=== PATIENT | female | born 1970 | race Caucasian/White ===

== ENCOUNTER 2021-08-02 13:29 | Inpatient (IN) | payer SELFPAY ==
[2021-08-02 14:51] LABS: Actual Bicarbonate (HCO3v) 24 mEq/L (22-28); Analyzer IN Cardio ER; Base Excess -1.3 mEq/L (-2.0 to +3.0); Calcium, Ionized (venous) 1.13 mmol/L (1.16-1.32); Chloride (VBG) 99 mmol/L (98-106); Hemoglobin (Hb) 13.4 g/dL (11.7-16.0); Potassium (VBG) 3.67 mmol/L (3.70-5.30); pH (venous) 7.36 (7.32-7.43)
[2021-08-02 14:53] LABS: #Eosinphils 0.1 thou/uL (0.0-0.7); #Lymphocytes 2.5 thou/uL (1.20-3.40); #Neutrophils 8.3 thou/uL (1.40-6.50); %Basophils 0.1 % (0.0-1.0); %Eosinophils 0.7 % (0.0-10.0); %Lymphocytes 21.2 % (21.0-51.0); %Monocytes 8.2 % (0.0-10.0); %Neutrophils 69.8 % (42.0-75.0); Hemoglobin 12.7 g/dL (12.0-16.0); Mean Corpuscular HGB CONC 32.8 g/dL (32.0-36.0); Mean Corpuscular Hemoglobin 29.7 pg (27.0-31.0); Mean Corpuscular Volume 90.6 fL (78.0-98.0); Mean Platelet Volume 6.1 fL (7.4-10.4); Platelet Count 473 thou/uL (130-400); RBC Distribution Width 14.7 % (11.5-14.5); Red Blood Cell (RBC) Count 4.27 mill/uL (4.20-5.40); White Blood Cell (WBC) Count 11.9 thou/uL (4.8-10.8)
[2021-08-02 15:04] LABS: INR-International Normal Ratio 1.1; PTT 33.4 sec (22.9-36.1); Prothrombin Time 14.5 sec (12.0-14.7)
[2021-08-02 15:26] LABS: ALT (SGPT) 41 U/L (8-55); AST (SGOT) 22 U/L (5-34); Albumin 3.8 g/dL (3.5-5.0); Alkaline Phosphatase 114 U/L (40-110); Anion Gap 13 mmol/L (10-20); BUN (Urea Nitrogen) 11 mg/dL (9.8-20.1); Bilirubin, Total 0.2 mg/dL (0.2-1.2); Calc. Creatinine Clearance 0 mL/min (70-130); Calcium 9.5 mg/dL (7.8-10.44); Carbon Dioxide 28 mmol/L (22-29); Chloride 97 mmol/L (98-107); Globulin 3.5 g/dL (2.4-3.5); Glucose 90 mg/dL (70-105); Potassium 3.6 mmol/L (3.5-5.1); Protein, Total 7.3 g/dL (6.0-8.3); Sodium 133 mmol/L (136-145)
[2021-08-02] MEDS ORDERED: Morphine 4 MG/ML VIAL ONE (15:37)
[2021-08-02] MEDS ORDERED: cefTRIAXone\\ROCEPHIN 2 GM in Sodium Chloride 0.9% 100 ML IVPB SCH (15:45)
[2021-08-02] MEDS ORDERED: Acetaminophen 325 MG TAB PO PRN (15:50)
[2021-08-02] MEDS ORDERED: Guaifenesin DM 100-10/5 ML UDCUP PO PRN (17:52)
[2021-08-02] MEDS ORDERED: Bisacodyl 5 MG TAB PO PRN (17:52)
[2021-08-02] MEDS ORDERED: Ondansetron PF 4 MG/2 ML Vial IVP PRN (17:52)
[2021-08-02] MEDS ORDERED: Senokot S 8.6-50 MG TAB PO PRN (17:52)
[2021-08-02] MEDS ORDERED: Melatonin 3 MG TAB PO PRN (18:01)
[2021-08-02] MEDS ORDERED: Morphine 4 MG/ML VIAL SLOW IVP PRN (18:39)
[2021-08-02 20:52] VITALS: BMI 36.6
[2021-08-02] MEDS ORDERED: Enoxaparin Sodium 40 MG/0.4 ML SYRINGE SC SCH (21:00)
[2021-08-02] MEDS: Famotidine/PF 20 mg/2ml Vial SLOW IVP SCH (21:20)
[2021-08-02] MEDS: Morphine 4 MG/ML VIAL SLOW IVP PRN (21:21)
[2021-08-02] MEDS: Nicotine 21 MG PATCH TD SCH (22:13)
[2021-08-02] MEDS: Cefepime 2 GM in Sodium Chloride 0.9% 100 ML IVPB SCH (22:37)
[2021-08-02] MEDS: Vancomycin HCl 1.5 GM in Sodium Chloride 0.9% 250 ML 300 ML IVPB SCH (23:24)
[2021-08-03] MEDS: metroNIDAZOLE 500 MG in Premix Bag 1 BAG IVPB SCH ×4 (03:00→22:31)
[2021-08-03] MEDS: Morphine 4 MG/ML VIAL SLOW IVP PRN ×5 (03:00→21:36)
[2021-08-03 03:32] LABS: SARS-CoV-2 NAA Rapid Test Not Detected (NotDetected)
[2021-08-03 07:36] LABS: ALT (SGPT) 28 U/L (8-55); AST (SGOT) 13 U/L (5-34); Alkaline Phosphatase 93 U/L (40-110); Anion Gap 10 mmol/L (10-20); BUN (Urea Nitrogen) 8 mg/dL (9.8-20.1); Bilirubin, Total 0.4 mg/dL (0.2-1.2); Calc. Creatinine Clearance 188 mL/min (70-130); Calcium 8.5 mg/dL (7.8-10.44); Carbon Dioxide 27 mmol/L (22-29); Chloride 102 mmol/L (98-107); Globulin 2.4 g/dL (2.4-3.5); Glucose 83 mg/dL (70-105); Protein, Total 5.4 g/dL (6.0-8.3); Sodium 135 mmol/L (136-145)
[2021-08-03] MEDS: Famotidine/PF 20 mg/2ml Vial SLOW IVP SCH ×2 (08:48→21:35)
[2021-08-03] MEDS: Atorvastatin Calcium 40 MG TAB PO SCH (08:51)
[2021-08-03] MEDS: Gabapentin 300 MG CAP PO SCH ×3 (08:51→21:40)
[2021-08-03] MEDS: Cyclobenzaprine 10 MG TAB PO SCH ×3 (08:51→21:35)
[2021-08-03 09:20] LABS: #Eosinphils 0.2 thou/uL (0.0-0.7); #Lymphocytes 1.7 thou/uL (1.20-3.40); #Monocytes 0.9 thou/uL (0.11-0.59); #Neutrophils 4.3 thou/uL (1.40-6.50); %Basophils 0.3 % (0.0-1.0); %Eosinophils 3.2 % (0.0-10.0); %Lymphocytes 23.4 % (21.0-51.0); %Monocytes 12.7 % (0.0-10.0); %Neutrophils 60.4 % (42.0-75.0); Hemoglobin 10.6 g/dL (12.0-16.0); Mean Corpuscular Hemoglobin 28.3 pg (27.0-31.0); Mean Corpuscular Volume 91.4 fL (78.0-98.0); Mean Platelet Volume 6.2 fL (7.4-10.4); Platelet Count 327 thou/uL (130-400); RBC Distribution Width 14.5 % (11.5-14.5); Red Blood Cell (RBC) Count 3.73 mill/uL (4.20-5.40); White Blood Cell (WBC) Count 7.2 thou/uL (4.8-10.8)
[2021-08-03 09:35] LABS: Anion Gap 10 mmol/L (10-20); BUN (Urea Nitrogen) 7 mg/dL (9.8-20.1); Calc. Creatinine Clearance 178 mL/min (70-130); Calcium 8.7 mg/dL (7.8-10.44); Carbon Dioxide 29 mmol/L (22-29); Chloride 100 mmol/L (98-107); Glucose 80 mg/dL (70-105); Potassium 3.9 mmol/L (3.5-5.1); Sodium 135 mmol/L (136-145)
[2021-08-03] MEDS ORDERED: Iopamidol 370 76% 50 ML VIAL FS ONE (09:50)
[2021-08-03] MEDS: Vancomycin HCl 1.5 GM in Sodium Chloride 0.9% 250 ML 300 ML IVPB SCH ×2 (10:23→21:46)
[2021-08-03] MEDS ORDERED: Bacitracin Zinc Ointment 30 gm TUBE ONE (13:31)
[2021-08-03] MEDS ORDERED: Neomycin-Polymyxin 1 ML AMP ONE (13:31)
[2021-08-03] MEDS ORDERED: HYDROmorphone 2 MG/ML VIAL ONE (13:33)
[2021-08-03] MEDS ORDERED: Fentanyl 100 MCG/2 ML VIAL ONE ×4 (13:33→16:31)
[2021-08-03] MEDS ORDERED: Sodium Chloride 0.9% 10 ML ONE (13:56)
[2021-08-03] MEDS ORDERED: PROPOFOL 200 MG/20 ML VIAL ONE (14:03)
[2021-08-03] MEDS ORDERED: Dexamethasone 20 MG/5 ML VIAL ONE (14:03)
[2021-08-03] MEDS ORDERED: Succinylcholine 200 MG/10 ml SYRINGE FS ONE (14:03)
[2021-08-03] MEDS ORDERED: Rocuronium Bromide 10 MG/ML (10ML VIAL) ONE (14:03)
[2021-08-03] MEDS ORDERED: Ketorolac Tromethamine 30 MG/ML VIAL ONE (14:03)
[2021-08-03] MEDS ORDERED: Glycopyrrolate 0.2 MG/ML 5 ML SYRINGE ONE (14:03)
[2021-08-03] MEDS ORDERED: ePHEDrine 50 MG/ML VIAL ONE (14:03)
[2021-08-03] MEDS ORDERED: Phenylephrine 10 MG/ML VIAL ONE (14:03)
[2021-08-03] MEDS ORDERED: Lidocaine 1% PF 5 ML VIAL ONE (14:03)
[2021-08-03] MEDS ORDERED: Ondansetron PF 4 MG/2 ML Vial ONE (14:03)
[2021-08-03] MEDS ORDERED: Ondansetron HCl/PF 4 MG/2 ML Vial IVP PRN (14:50)
[2021-08-03] MEDS ORDERED: HYDROmorphone 2 MG/ML VIAL SLOW IVP PRN (14:50)
[2021-08-03] MEDS ORDERED: Promethazine HCl 25 MG/ML VIAL IM PRN (14:50)
[2021-08-03] MEDS ORDERED: Promethazine HCl 25 MG/ML VIAL IVPB PRN (14:50)
[2021-08-03] MEDS ORDERED: Meperidine HCl/PF 25 MG/ML VIAL SLOW IVP PRN (14:50)
[2021-08-03] MEDS ORDERED: SUGAMMADEX SODIUM 200 MG/2 ML VIAL ONE (14:54)
[2021-08-03] MEDS ORDERED: HYDROmorphone 0.5 MG/0.5 ML SYRINGE ONE ×2 (15:36→15:43)
[2021-08-03] MEDS ORDERED: Acetaminophen/Codeine 30-300mg Tablet PO PRN (15:36)
[2021-08-03] MEDS: HYDROcodone/Acetaminophen 7.5/325 mg Tablet PO PRN (17:17)
[2021-08-03] MEDS: Cefepime 2 GM in Sodium Chloride 0.9% 100 ML IVPB SCH (17:17)
[2021-08-03] MEDS: Nicotine 21 MG PATCH TD SCH (17:57)
[2021-08-03] MEDS ORDERED: metroNIDAZOLE 500 MG TAB PO SCH (22:30)
[2021-08-04] MEDS: HYDROcodone/Acetaminophen 7.5/325 mg Tablet PO PRN ×2 (06:15→13:24)
[2021-08-04 06:33] LABS: #Lymphocytes 1.1 thou/uL (1.20-3.40); #Monocytes 0.6 thou/uL (0.11-0.59); #Neutrophils 6.3 thou/uL (1.40-6.50); %Basophils 0.4 % (0.0-1.0); %Eosinophils 0.4 % (0.0-10.0); %Lymphocytes 13.9 % (21.0-51.0); %Monocytes 7.8 % (0.0-10.0); %Neutrophils 77.6 % (42.0-75.0); Hemoglobin 10.3 g/dL (12.0-16.0); Mean Corpuscular HGB CONC 33.1 g/dL (32.0-36.0); Mean Corpuscular Hemoglobin 29.9 pg (27.0-31.0); Mean Corpuscular Volume 90.2 fL (78.0-98.0); Mean Platelet Volume 6.3 fL (7.4-10.4); Platelet Count 305 thou/uL (130-400); Red Blood Cell (RBC) Count 3.44 mill/uL (4.20-5.40); White Blood Cell (WBC) Count 8.1 thou/uL (4.8-10.8)
[2021-08-04 06:51] LABS: Anion Gap 10 mmol/L (10-20); BUN (Urea Nitrogen) 7 mg/dL (9.8-20.1); Calc. Creatinine Clearance 192 mL/min (70-130); Calcium 8.7 mg/dL (7.8-10.44); Carbon Dioxide 26 mmol/L (22-29); Chloride 103 mmol/L (98-107); Glucose 113 mg/dL (70-105); Sodium 135 mmol/L (136-145)
[2021-08-04] MEDS: Morphine 4 MG/ML VIAL SLOW IVP PRN ×2 (07:56→15:04)
[2021-08-04] MEDS: Famotidine/PF 20 mg/2ml Vial SLOW IVP SCH (07:59)
[2021-08-04] MEDS: Vancomycin HCl 1.5 GM in Sodium Chloride 0.9% 250 ML 300 ML IVPB SCH (08:00)
[2021-08-04] MEDS: Atorvastatin Calcium 40 MG TAB PO SCH (08:03)
[2021-08-04] MEDS: Cyclobenzaprine 10 MG TAB PO SCH ×2 (08:03→15:10)
[2021-08-04] MEDS ORDERED: metroNIDAZOLE 500 MG TAB PO SCH (09:00)
[2021-08-04] MEDS ORDERED: FLU VACC QS2021-22(6MOS UP)/PF 60 MCG/0.5 ML SYRINGE IM ONE (09:00)
[2021-08-04 09:37] LABS: Vancomycin, Trough 27.9 ug/mL
[2021-08-04] MEDS ORDERED: Gabapentin 300 MG CAP PO SCH ×2 (09:45→15:00)
[2021-08-04] MEDS ORDERED: Metoprolol Tartrate 25 MG TAB PO SCH ×3 (09:45→21:00)
[2021-08-04] MEDS ORDERED: levETIRAcetam 500 MG TAB PO SCH ×3 (09:45→21:00)
[2021-08-04 12:31] VITALS: BP 111/68; TEMP 98
[2021-08-04] MEDS ORDERED: Cefepime 2 GM in Sodium Chloride 0.9% 100 ML IVPB SCH (13:00)
[2021-08-04] MEDS ORDERED: Famotidine 20 MG TAB PO SCH (21:00)
[2021-08-05] MEDS ORDERED: Vancomycin 1 GM in Premix Bag 1 BAG IVPB SCH (09:00)
[2021-08-05 16:38] LABS: Fungus Stain Final report (.)
== END 2021-08-04 15:55 | disposition home health service (06) | DRG 862 ==
LOC: ERS 13:29 → SJJU 16:10
PROVIDERS: ADMIT Family Medicine; ATTEND Hospitalist
PROC: 06H03DZ Insertion of Intraluminal Device into Inferior Vena Cava, Percutaneous Approach (ICD-10-PCS; principal; 2021-08-03)
DX: T81.49XA Infection following a procedure, other surgical site, initial encounter (principal); G06.1 Intraspinal abscess and granuloma; T81.31XA Disruption of external operation (surgical) wound, not elsewhere classified, initial encounter; I69.954 Hemiplegia and hemiparesis following unspecified cerebrovascular disease affecting left non-dominant side; Z20.822 Contact with and (suspected) exposure to COVID-19; Y83.8 Other surgical procedures as the cause of abnormal reaction of the patient, or of later complication, without mention of misadventure at the time of the procedure; G43.909 Migraine, unspecified, not intractable, without status migrainosus; M25.472 Effusion, left ankle; E66.3 Overweight; E78.5 Hyperlipidemia, unspecified; F17.210 Nicotine dependence, cigarettes, uncomplicated; Z82.49 Family history of ischemic heart disease and other diseases of the circulatory system; Z82.3 Family history of stroke; Z86.718 Personal history of other venous thrombosis and embolism; Z68.36 Body mass index [BMI] 36.0-36.9, adult; Z90.710 Acquired absence of both cervix and uterus; Z88.0 Allergy status to penicillin; Z88.2 Allergy status to sulfonamides; Z91.040 Latex allergy status; Z79.82 Long term (current) use of aspirin; Z79.899 Other long term (current) drug therapy; Z87.440 Personal history of urinary (tract) infections; Z74.01 Bed confinement status
CPT/HCPCS: 36415; 37191; 76000; 76942; 80048; 80053; 80202; 82805; 83605; 85025; 85610; 85652; 85730; 86140; 86850; 86900; 86901; 87040; 87070; 87102; 87205; 87206; 93005; 93970; 96374; C1880; J0692; J1100; J1170; J1650; J1885; J2270; J2370; J2405; J2704; J3010; J3370; J3490; J7030; J7050; Q9967; S0028; U0002